=== PATIENT | male | born 1945 | race Caucasian/White ===

== ENCOUNTER 2016-09-02 11:04 | Inpatient (IN) | payer OTHER, MEDICARE ==
--- NOTE | ~2016-09-02 | DS ---
Discharge Summary [facility] [address] [place]. [address] NAME: ALBERT CONLEY : 47 STATUS : DIS IN PAT#: [id number] AGE: 71 ADM/REG DATE : 09/02/16 MR#: [id number] REPORT SERV DATE: 09/06/16 DICTATED BY: ELY NAVARRO DATE: 09/05/16 REPORT STATUS : Draft TRANSCRIBED BY: MODL DATE: 09/05/16 ADMISSION DATE: 09/02/2016 DISCHARGE DATE: 09/05/2016 DISCHARGE DIAGNOSES: 1. New finding of congestive heart failure, left ventricular dysfunction. 2. Hypertension. 3. Sleep apnea compliant with CPAP. 4. Obesity. 5. Gout. FOOD SERVICE AGENT: Dr. Merchant. HISTORY OF PRESENT ILLNESS: This is a 71-year-old [facility] patient, who was directly admitted to hospital. When he presented here to Dr. Rodríguez's office with dyspnea on exertion. At that time, please see dictated H and P. HOSPITAL COURSE: He was admitted to the hospital with dyspnea on exertion. That time initially day, he was not able to walk more than 50 feet one time without any short of breath. There is a significant change in his symptoms and had evaluation through the emergency room and outpatient setting. He was diagnosed with a clinically heart failure and was treated with IV diuretics and significant improvement was achieved. Now, he is able to ambulate the hallway without any problem. His oxygenation with ambulatory is normal. After he started on empiric diuretics, he had echocardiogram. Echocardiogram was read enlarged left ventricle in systole and also showed apical hypokinesis and then mild reduction in global left ventricular systolic function with a diastolic dysfunction. This is a new finding. Dr. Merchant was consulted and he plans to do the cardiac cath in a few days. The patient improved significantly. He remains in stable condition, and the patient will be discharged to home without any change of medication, but he will come back to the hospital for a cardiac catheterization in two days. The current plan of care were discussed with Dr. Merchant and the patient and they voiced understanding. The patient will be discharged to home in stable condition. Acute kidney injury, on the discharge diagnosis secondary to the diuretic use. DISCHARGE MEDICATIONS: Home medication and continued Lotrel 5/20 one capsule once a day, aspirin 81 mg once a day, Zocor 20 mg at bedtime, triamterene/hydrochlorothiazide 37.5/25 once a day. Continued to do the allopurinol three times a day. TIME SPENT: More than 30 minutes on discharge coordination. EKL/MODL Discharge Summary [address] [address] NAME: ALBERT CONLEY : 47 STATUS : DIS IN PAT#: [id number] AGE: 71 ADM/REG DATE : 09/02/16 MR#: [id number] REPORT SERV DATE: 09/06/16 DICTATED BY: ELY NAVARRO DATE: 09/05/16 REPORT STATUS : Draft TRANSCRIBED BY: LIDIA DATE: 09/05/16 Ely Navarro M.D. / [id number] CC: Patricio Lan D.O.
--- NOTE | ~2016-09-02 | HP ---
History And Physical [place] [id number] [facility] [place]. [address] NAME: ALBERT CONLEY : 47 STATUS : ADM IN PAT#: [id number] AGE: 71 ADM/REG DATE : 09/02/16 MR#: [id number] REPORT SERV DATE: 09/02/16 DICTATED BY: ELY NAVARRO DATE: 09/02/16 REPORT STATUS : Draft TRANSCRIBED BY: MODL DATE: 09/02/16 DATE OF ADMISSION: 09/02/2016 CHIEF COMPLAINT: Dyspnea on exertion. HISTORY OF PRESENT ILLNESS: This is a 71-year-old still actively working, very active and independent male patient, who was directly admitted to hospital for dyspnea on exertion. He started having this short of breath feeling with exertion about three to four weeks ago. At that time, he and his thought it has become from his weight, so they signed up at a gym and they are trying to work out, but a few weeks later at that point he was not even able to go up to the treadmill anymore and now currently he said he can an even walk more than 30 feet anymore. The problems been gradually worse and he had to go to the emergency room and his primary care physician's office. At the first time when he went to the Emergency Room, which is 08/21/2016 he was told he had bronchitis and he was given the cough pill and nausea pill, although he did not have any cough or nausea. It did not work very much, so therefore the patient want to see his primary care physician, Dr. Rodríguez . At that time, he did a bunch of blood work and he sent this patient to Dr. Merchant, who is his television and radio repairer. At that time, Dr. Merchant did a carotid ultrasound for dyspnea on exertion and he states all clear and there are not much issues from his standpoint. Of note, the patient had a nuclear stress test back in 06/2016 that was negative. Continue to have worsening problems, so he was sent to the [facility] to get CTA of the chest and ultrasound of the leg as a part of the workup for his dyspnea on exertion, which was negative. I do not have report. The patient is a very good historian and giving all this information. At that time, he was told he had a pneumonia and he was given the Z-Wilfredo and inhaler, which did not help at all. He went to see Dr. Rodríguez again today and he would recommend to get direct admission. No fever. No chills. Dyspnea on exertion and he has a chronic orthopnea. He uses two pillows all the time. He does have sleep apnea and is compliant towards the CPAP. He thinks it is still working and does not need to be adjusted. He denies any leg swelling, but developed to have a gout along with this dyspnea on exertion issues. Dr. Rodríguez has been treating the gout with allopurinol for the last couple weeks and he still feels it is painful. No bleeding. No dysuria or constipation or diarrhea. No weight changes. No seizures. No palpitation. REVIEW OF SYSTEMS: All systems are reviewed and negative. PAST MEDICAL HISTORY: History And Physical [address] [address] NAME: ALBERT CONLEY : 47 STATUS : ADM IN [facility]#: [id number] AGE: 71 ADM/REG DATE : 09/02/16 MR#: [id number] REPORT SERV DATE: 09/02/16 DICTATED BY: ELY NAVARRO DATE: 09/02/16 REPORT STATUS : Draft TRANSCRIBED BY: LIDIA DATE: 09/02/16 1. Hypertension, life-long. 2. Coronary artery disease had a nuclear follow up back in 06/2016 was negative. The patient has a cardiac stent. 3. Sleep apnea, using CPAP every night. 4. Gout, recent diagnosis. PAST SURGICAL HISTORY: 1. Cholecystectomy. 2. Left partial knee surgery. 3. Left rotator cuff surgery. SOCIAL HISTORY: Never smoked cigarettes. No drink alcohol. The patient still working outside in sales. Lives with his . MEDICATIONS: 1. Lotrel 5/20 one capsule once a day. 2. Aspirin 81 mg once a day. 3. Zocor 20 mg once at bedtime. 4. Triamterene and hydrochlorothiazide 37.5/25 one capsule once a day. 5. Lrow-ltb-bdvzmbn acid group account director. PHYSICAL EXAMINATION: VITAL SIGNS: Blood pressure 123/75, pulse 71, temperature 97.6, respiratory rate 20, saturation 95% on room air at rest. GENERAL APPEARANCE: He is alert, awake, not in acute distress. Trunk obese patient. HEENT: Pupils are equal and round. Reactive to light. EOM intact. Conjunctivae not anemic. NECK: Do not see the JVD right now, but also carotid bruits not audible. The patient has no nodes. LUNGS: Both base crackles especially the right is louder than the left side. CARDIOVASCULAR: No murmur, rub, or gallop appreciated. Has a regular rhythm and rate. ABDOMEN: Bowel sounds present. Soft. Obese body habitus. EXTREMITIES: There is no pitting edema. Pulses are intact in both feet. The left great toe metatarsal joint has tenderness, redness, and swelling. Laboratory and x-rays not available at this point. ASSESSMENT AND PLAN: 1. Dyspnea on exertion with clinical finding of the both base crackles suspected diastolic dysfunction. 2. Hypertension. 3. Sleep apnea compliant with the CPAP. 4. Obesity. 5. Gout. History And Physical [address] [address] NAME: ALBERT CONLEY : 47 STATUS : ADM IN [facility]#: [id number] AGE: 71 ADM/REG DATE : 09/02/16 MR#: [id number] REPORT SERV DATE: 09/02/16 DICTATED BY: ELY NAVARRO DATE: 09/02/16 REPORT STATUS : Draft TRANSCRIBED BY: MODArmida DATE: 09/02/16 Overall, the patient will be treated with IV diuretics. We will obtain an echocardiogram. Continue to use the CPAP and also we will check x-rays and also uric acid level. We will watch his gout symptoms along with diuretic treatment. The current medication diagnosis and plan of care is explained the patient and they voiced understanding. EKL/MODL Ely Navarro M.D. / [id number] CC: Patricio Lan Donald W.
[~2016-09-02 11:04] MED LIST: ASAB PO; DYAZIDE1 CAP PO; LOTREL1 CA2 PO; OTC ACID REDUCER PO; RED YEAST RICE PO; ZOCOR20 PO
[2016-09-03 06:32] LABS: BASOPHILS 0.4 %; BASOPHILS ABSOLUTE 0.04 10/3/uL (0.0-0.16); EOSINOPHILS 2.7 %; HEMATOCRIT 41.3 % (40.0-51.0); HEMOGLOBIN 14.1 g/dL (13.6-17.8); IMMATURE GRANULOCYTES 0.6 %; IMMATURE GRANULOCYTES ABSOLUTE 0.07 10/3/uL (0.0-0.11); LYMPHOCYTES 14.4 %; LYMPHOCYTES ABSOLUTE 1.59 10/3/uL (0.67-4.30); MANUAL DIFF NO %; MEAN CORPUS HGB CONC 34.1 g/dL (32.0-36.0); MEAN CORPUSCULAR HEMOGLOB 29.5 pg (26.0-34.0); MEAN CORPUSCULAR VOLUME 86.4 fL (80-100); MEAN PLATELET VOLUME 9.8 fL (9.2-13.0); MONOCYTES 8.3 %; MONOCYTES ABSOLUTE 0.92 10/3/uL (0.21-1.20); NEUTROPHILS 73.6 %; NEUTROPHILS ABSOLUTE 8.11 10/3/uL (2.02-8.40); PLATELET COUNT 331 10/3/uL (150-400); RBC DISTRIBUTION WIDTH 14.2 % (12.0-16.0); RED CELL COUNT 4.78 10/6/uL (4.7-6.1)
[2016-09-03 06:36] LABS: BUN (BLOOD UREA NITROGEN) 21 MG/DL (6-23); CALCIUM, SERUM 9.2 MG/DL (8.5-10.4); CHLORIDE, SERUM 105 MMOL/L (96-112); CO2 (CARBON DIOXIDE) 25 MMOL/L (24-34); CREATININE 1.17 MG/DL (0.70-1.30); GFR AFRICAN AMERICAN 73 ML/MIN (>=60); GFR NON AFRICAN AMERICAN 63 ML/MIN (>=60); GLUCOSE, SERUM 101 MG/DL (60-99); POTASSIUM, SERUM 3.8 MMOL/L (3.5-5.3); SODIUM, SERUM 139 MMOL/L (135-148)
[2016-09-04 04:09] LABS: BASOPHILS 0 %; EOSINOPHILS 0 %; HEMOGLOBIN 14.6 g/dL (13.6-17.8); IMMATURE GRANULOCYTES 0.4 %; IMMATURE GRANULOCYTES ABSOLUTE 0.04 10/3/uL (0.0-0.11); LYMPHOCYTES 8.5 %; LYMPHOCYTES ABSOLUTE 0.87 10/3/uL (0.67-4.30); MEAN CORPUS HGB CONC 34.8 g/dL (32.0-36.0); MEAN CORPUSCULAR HEMOGLOB 29.6 pg (26.0-34.0); MEAN PLATELET VOLUME 10.2 fL (9.2-13.0); MONOCYTES 0.8 %; MONOCYTES ABSOLUTE 0.08 10/3/uL (0.21-1.20); NEUTROPHILS 90.3 %; NEUTROPHILS ABSOLUTE 9.28 10/3/uL (2.02-8.40); PLATELET COUNT 360 10/3/uL (150-400); RED CELL COUNT 4.94 10/6/uL (4.7-6.1); WHITE BLOOD CELLS 10.3 10/3/uL (4.5-10.5)
[2016-09-04 04:11] LABS: MANUAL DIFF NO %
[2016-09-04 04:24] LABS: CALCIUM, SERUM 9.8 MG/DL (8.5-10.4); CHLORIDE, SERUM 101 MMOL/L (96-112); CO2 (CARBON DIOXIDE) 22 MMOL/L (24-34); CREATININE 1.39 MG/DL (0.70-1.30); GFR AFRICAN AMERICAN 59 ML/MIN (>=60); GFR NON AFRICAN AMERICAN 51 ML/MIN (>=60); POTASSIUM, SERUM 3.9 MMOL/L (3.5-5.3); SODIUM, SERUM 139 MMOL/L (135-148)
[2016-09-04 04:25] LABS: BUN (BLOOD UREA NITROGEN) 31 MG/DL (6-23); GLUCOSE, SERUM 205 MG/DL (60-99)
[2016-09-05 04:44] LABS: CALCIUM, SERUM 9.1 MG/DL (8.5-10.4); CHLORIDE, SERUM 102 MMOL/L (96-112); CO2 (CARBON DIOXIDE) 22 MMOL/L (24-34); CREATININE 1.51 MG/DL (0.70-1.30); GFR AFRICAN AMERICAN 53 ML/MIN (>=60); GFR NON AFRICAN AMERICAN 46 ML/MIN (>=60); POTASSIUM, SERUM 3.9 MMOL/L (3.5-5.3); SODIUM, SERUM 139 MMOL/L (135-148)
[2016-09-05 04:45] LABS: BUN (BLOOD UREA NITROGEN) 46 MG/DL (6-23); GLUCOSE, SERUM 149 MG/DL (60-99)
== END 2016-09-05 19:03 | disposition home or self-care (01) | DRG 292 ==
LOC: 7NO 11:04
PROVIDERS: Internal Medicine
DX: I11.0 Hypertensive heart disease with heart failure (principal); N17.9 Acute kidney failure, unspecified; E66.9 Obesity, unspecified; I25.10 Atherosclerotic heart disease of native coronary artery without angina pectoris; G47.33 Obstructive sleep apnea (adult) (pediatric); I50.41 Acute combined systolic (congestive) and diastolic (congestive) heart failure; M10.9 Gout, unspecified; T50.2X5A Adverse effect of carbonic-anhydrase inhibitors, benzothiadiazides and other diuretics, initial encounter; Z79.82 Long term (current) use of aspirin; Z90.49 Acquired absence of other specified parts of digestive tract; Z68.30 Body mass index [BMI] 30.0-30.9, adult
CPT/HCPCS: 71020; 80048; 83735; 83880; 84484; 84550; 85025; 93005; A9270-GY; C8929; J2930; Q9957